=== PATIENT | female | born 1970 | race Caucasian/White ===

== ENCOUNTER → 2020-10-05 | Day surgery (SDC) | payer BC ==
[~2020-10-05] MED LIST: IPRATRPIUM/ALBUTEROL 0.5/2.5MG 3 ML NEBU. NEB PRN; IV RINGERS SOLUTION,LACTATED 1,000 ML IV SCH; LIDOCAINE 2% PF 5 ML VIAL. ONE; MIDAZOLAM HCL PF 2 MG/2 ML VIAL. IV ONE; ONDANSETRON PF 4 MG/2 ML VIAL. IV PRN; PROPOFOL 10,000 MCG/ML (20ML) VIAL IV ONE
[2020-10-05 09:20] VITALS: BP 99/67
--- NOTE | 2020-10-07 12:07 | PATHOLOGY ---
[facility] Accession Number: [id number] . 01 Material submitted: . PART A: colon - ASCENDING POLYP BIOPSY. Modifiers: ascending PART B: sigmoid colon - SIGMOID POLYP BIOPSY PART C: sigmoid colon - DISTAL SIGMOID COLON POLYP BIOPSY. Modifiers: distal . 01 Clinical history: . RECTAL BLEEDING COLONOSCOPY . 02 Diagnosis: A. Colon biopsy, ascending colon polyp: - Tubular adenoma. . B. Colon biopsies, sigmoid colon polyp: - Hyperplastic polyp. . C. Colon biopsies, distal sigmoid colon polyps: - Hyperplastic polyps. (JPM:patricia; 10/07/2020) [facility] [place] 10/07/2020 0824 Local . 02 Comment: There is no high grade dysplasia or evidence of malignancy. (JPM:patricia; 10/07/2020) . 02 Electronically signed: . Jamar Cortes MD, Pathologist NPI- [id number] . 01 Gross description: . A. Received in formalin labeled "Broom, Veronica, ascending polyp" is a patel-brown soft tissue fragment measuring 0.3 x 0.3 x 0.1 cm. The specimen is submitted entirely in A1. . B. Received in formalin labeled "Broom, Veronica, sigmoid polyp" are 2 patel-brown soft tissue fragments measuring in aggregate 0.4 x 0.2 x 0.1 cm. The specimen is submitted entirely in B1. . C. Received in formalin labeled "Broom, Veronica, distal sigmoid colon polyp" are 2 patel-brown soft tissue fragments measuring in aggregate 0.4 x 0.3 x 0.1 cm. The specimen is submitted entirely in C1. (ERIC; 10/06/2020) ERIC/ERIC 10/06/2020 1133 Local . 02 Pathologist provided ICD-10: D12.2, K63.5 . 02 CPT . 236895, 848514, [id number] Specimen Comment: A courtesy copy of this report has been sent to [phone], [phone] Specimen Comment: [id number] Specimen Comment: Report sent to / DR BALLARD Performed at: [address] [facility] [address], [place] [id number] MD Jose Angel Perez MD Phone: [phone] Performed at: 02 [facility] [address] [place], [place] [id number] MD Jamar Cortes MD Phone: [phone]
== END | disposition home or self-care (01) ==
LOC: SURG 07:36
PROVIDERS: ATTEND Internal Medicine Gastroenterology
DX: K92.1 Melena (principal); K64.8 Other hemorrhoids; K57.30 Diverticulosis of large intestine without perforation or abscess without bleeding; D12.2 Benign neoplasm of ascending colon; K63.89 Other specified diseases of intestine; E78.00 Pure hypercholesterolemia, unspecified; Z88.8 Allergy status to other drugs, medicaments and biological substances; Z88.5 Allergy status to narcotic agent; Z91.013 Allergy to seafood; Z72.89 Other problems related to lifestyle; Z87.442 Personal history of urinary calculi; Z88.6 Allergy status to analgesic agent
CPT/HCPCS: 45380; J2001; J2704; J7120